=== PATIENT | female | born 1990 | race Caucasian/White ===

== ENCOUNTER 2023-07-27 14:04 | Emergency (ER) | payer MEDICAID, OTHER ==
[~2023-07-27] VITALS: Ht 172.7 cm; Wt 91.0 kg
[2023-07-27 14:14] VITALS: O2SAT 99
[2023-07-27] MEDS: KETOROLAC 60MG/2ML VIAL IM ONE (15:38)
[2023-07-27] MEDS ORDERED: NAPR500T7 MT (15:54)
[2023-07-27] MEDS ORDERED: TOPUD MT (15:54)
[2023-07-27] MEDS: POVIDONE-IODINE 10% TOPICAL SOLN 240ML TOP ONE (16:31)
[2023-07-27 17:19] VITALS: BP 129/74; PULSE 90; RESP 16; TEMP 98.2
== END 2023-07-27 17:29 | disposition home or self-care (01) ==
LOC: ER 14:58
DX: S80.812A Abrasion, left lower leg, initial encounter (principal); Z98.890 Other specified postprocedural states; V26.49XA Other motorcycle driver injured in collision with other nonmotor vehicle in traffic accident, initial encounter; Y93.89 Activity, other specified; Y92.89 Other specified places as the place of occurrence of the external cause; Y99.8 Other external cause status
CPT/HCPCS: 99284; 73030; 73130; 73560; 73600; 96372; J1885